=== PATIENT | female | born 1940 | race Caucasian/White ===

== ENCOUNTER 2022-08-09 15:06 | Emergency (ER) | payer OTHER ==
[~2022-08-09] VITALS: Ht 165.1 cm; Wt 68.0 kg
--- NOTE | 2022-08-09 15:25 | NUR ---
bobbi from the [facility] c/o R buttock pain s/p trip and fall 3 days ago fentanyl 100mcg given ivp [employer]. PLACED IN BED, AAOX4, BREATHING EVEN AND UNLABORED SATURATING AT 97%RA, IN PAIN 8/10 PS.
[2022-08-09] MEDS ORDERED: KETOROLAC TROMETHAMINE INJ 30 MG/ML VIAL ONE (15:39)
--- NOTE | 2022-08-09 15:55 | NUR ---
PATIENT TAKEN TO CT VIA [facility]
[2022-08-09] MEDS ORDERED: KETOROLAC TROMETHAMINE INJ 60 MG/2 ML VIAL IM ONE (16:00)
[2022-08-09] MEDS ORDERED: NAPR-1164 PO (16:58)
--- NOTE | 2022-08-09 17:23 | NUR ---
IV removed. Catheter intact and site benign. Pressure and 4x4 applied to site. No bleeding noted.Patient discharged to home in stable condition. Written and verbal after care instructions given. Patient AND RELATIVES verbalizes understanding of instruction.
[2022-08-09 17:25] VITALS: BP 135/75
== END 2022-08-09 17:23 | disposition home or self-care (01) ==
LOC: ER 15:08 → EDBD 15:08 → ER 17:23
DX: M25.551 Pain in right hip (principal); I10 Essential (primary) hypertension; Z88.0 Allergy status to penicillin; W01.0XXA Fall on same level from slipping, tripping and stumbling without subsequent striking against object, initial encounter; Y93.89 Activity, other specified; Y92.89 Other specified places as the place of occurrence of the external cause; Y99.8 Other external cause status
CPT/HCPCS: 99285; 73700; 96372; 72170; J1885

== ENCOUNTER 2022-08-14 13:35 | Emergency (ER) | payer OTHER ==
[~2022-08-14] VITALS: Ht 172.7 cm; Wt 70.3 kg
[~2022-08-14 13:35] MED LIST: NAPR-1164 PO
--- NOTE | 2022-08-14 13:55 | NUR ---
REcieved pt 82 yrs female came by sid c/o genralized weekness came from [facility] c/o unable to amblate awake and alert no sob
--- NOTE | 2022-08-14 14:00 | NUR ---
Seen BY DR Brittny MACHADO
--- NOTE | 2022-08-14 14:26 | NUR ---
accuchecked done 93
[2022-08-14 15:15] VITALS: BP 151/74
--- NOTE | 2022-08-14 15:15 | NUR ---
D/C INSTRACTION GIVEN TO PT FULLY AND VERBLIZED UNDERSTOOD D/C HOME BY WC STABLE VS AND CONDITION
== END 2022-08-14 15:23 | disposition home or self-care (01) ==
LOC: ER 13:36
DX: R25.1 Tremor, unspecified (principal); M25.559 Pain in unspecified hip; I10 Essential (primary) hypertension; Z88.0 Allergy status to penicillin
CPT/HCPCS: 82962-TC

== ENCOUNTER 2023-07-21 14:05 | Emergency (ER) | payer OTHER ==
[~2023-07-21] VITALS: Ht 165.1 cm; Wt 51.7 kg
[2023-07-21 15:08] LABS: BASOPHILS % (AUTO) 0.8 % (0.0-2.0); HEMATOCRIT 27 % (33-45); HEMOGLOBIN 9.1 g/dL (11.5-14.8); LYMPHOCYTES # (AUTO) 0.3 K/uL (0.8-4.8); LYMPHOCYTES % (AUTO) 5.8 % (20.0-44.0); MEAN CORPUSCULAR HEMOGLOBIN 37 PG (26.0-33.0); MEAN CORPUSCULAR HGB CONC 33 g/dl (31.0-36.0); MEAN CORPUSCULAR VOLUME 110 fL (82-100); MONOCYTES # (AUTO) 0.2 K/uL (0.1-1.30); MONOCYTES % (AUTO) 5.4 % (2.0-12.0); PLATELET COUNT (AUTO) 111 K/uL (150-450); RED CELL DISTRIBUTION WIDTH 16.9 % (11.5-15.0); WHITE BLOOD COUNT (AUTO) 4.5 K/uL (4.3-11.0)
[2023-07-21 15:20] LABS: INR 1.04 (0.91-1.10); PARTIAL THROMBOPLASTIN TIME 24.9 SEC (24.3-34.3); PROTHROMBIN TIME 10.7 SECS (9.2-11.1)
[2023-07-21 15:32] LABS: ALANINE AMINOTRANSFERASE 12 U/L (12-78); ALKALINE PHOSPHATASE 84 U/L (46-116); ASPARTATE AMINOTRANSFERASE 16 U/L (15-37); BILIRUBIN,DIRECT 0.6 mg/dL (0.0-0.2); BILIRUBIN,TOTAL 1.4 mg/dL (0.2-1.0); CALCIUM, SERUM 8.7 mg/dL (8.5-10.1); CARBON DIOXIDE 19 mmol/L (21-32); CHLORIDE 102 mmol/L (98-107); CREATININE 1.1 mg/dL (0.6-1.3); GLUCOSE 137 mg/dL (74-106); NT-PRO BNP 1494 pg/mL (0-125); POTASSIUM 3.8 mmol/L (3.5-5.1); SODIUM SERUM 132 mmol/L (136-145); TOTAL PROTEIN, SERUM 6.8 g/dL (6.4-8.2); UREA NITROGEN, BLOOD 23 mg/dL (7-18)
[2023-07-21 15:36] LABS: LACTIC ACID 5.1 mmol/L (0.4-2.0)
[2023-07-21] MEDS: IV NS 0.9% 1,000 ML BAG IV ONE ×2 (16:00→17:46)
[2023-07-21 16:04] LABS: ABG BASE EXCESS -1.4 mmol/L; ABG OXYGEN SATURATION 98.4 % (92.0-98.5); ABG PCO2 14.2 mmHg (35.0-45.0); ABG PH 7.694 (7.350-7.450); ABG PO2 107.9 mmHg (75.0-100.0); ABG TOTAL HEMOGLOBIN 9.4 G/dL (12.0-16.0); COHb 0.2 % (0.5-1.5); MetHb 0.3 % (0.0-1.5); O2Hb 97.9 % (94.0-97.0); SITE, ABG Right Radial; VENT MODE, BG 1L NC
[2023-07-21 16:48] LABS: APPEARANCE,URINE CLOUDY (CLEAR); BILIRUBIN,URINE 1+ (NEGATIVE); BLOOD, URINE 3+ Ery/uL (NEGATIVE); COLOR,URINE YELLOW (YELLOW); KETONES,URINE TRACE mg/dL (NEGATIVE); LEUKOCYTE ESTERASE ,URINE 2+ (NEGATIVE); NITRITE, URINE NEGATIVE (NEGATIVE); PH,URINE 5.5 (5.0-8.0); PROTEIN,URINE 2+ mg/dl (NEGATIVE); UGLUCOSE NEGATIVE (NEGATIVE)
[2023-07-21 17:10] LABS: ADD URINE CULTURE YES; BACTERIA,URINE 3+ /HPF (None Seen); MUCUS,URINE Few /LPF (None Seen); RBC,URINE 51-80 /HPF (0-2); SQUAMOUS EPITHELIAL CELL,UR 0-2 /HPF (None Seen); WBC,URINE 21-50 /HPF (0-3)
[2023-07-21 17:20] VITALS: TEMP 98.3
[2023-07-21] MEDS ORDERED: CLINDAMYCIN PHOSPHATE IV 600 MG/4 ML VIAL IV ONE (17:30)
[2023-07-21] MEDS ORDERED: CLINDAMYCIN 900 MG/6 ML VIAL ONE (17:40)
[2023-07-21] MEDS: CLINDAMYCIN PHOSPHATE IV 600 MG/4 ML VIAL IV ONE (17:59)
[2023-07-21] MEDS: GENTAMICIN 80 MG in IV D5W 50 ML IV ONE (18:00)
[2023-07-21 19:30] VITALS: BP 128/58; O2SAT 99
== END 2023-07-21 21:58 | disposition short-term general hospital (02) ==
LOC: ER 14:07
DX: N39.0 Urinary tract infection, site not specified (principal); E87.20 Acidosis, unspecified; Z79.899 Other long term (current) drug therapy; I10 Essential (primary) hypertension; Z88.0 Allergy status to penicillin; Z88.2 Allergy status to sulfonamides
CPT/HCPCS: 99285; 96365; 71045; 96361; 96375; 93005; 82803; 85025; 80048; 87040 ×2; 87086; 83605 ×2; 80076; 81001; 36415; 84484; 85730; 83880; 36600 ×2; J3490; J1580; J7060; J7030 ×2; A4223